=== PATIENT | male | born 1950 | race Caucasian/White ===

== ENCOUNTER 2019-06-14 08:34 | Emergency (ER) | payer MEDICARE, BC ==
[2019-06-14 08:49] VITALS: BP 159/76
--- NOTE | 2019-06-14 09:00 | UC ---
Skin Complaint HPI - HPI Summary HPI Summary: 68 yo lub[place], aware of irritation on his right lateral mid back x 1 week. Yesterday his realized that he has an embedded tick. No hx of Lyme disease, no fever, chills or arthralgias. - History of Current Complaint Chief Complaint: [facility]kin Time Seen by Provider: 06/14/19 08:40 Stated Complaint: SKIN CONCERN ON BACK Hx Obtained From: Patient Onset/Duration: Gradual Onset, Lasting Days Skin Exposure Onset/Duration: Days Ago - ?possibly Timing: Constant Onset Severity: Mild Current Severity: Mild Pain Intensity: 0 Location: Discrete Aggravating Factor(s): Nothing Alleviating Factor(s): Nothing Associated Signs & Symptoms: Positive: Negative - Allergy/Home Medications Allergies/Adverse Reactions: Allergies Allergy/AdvReac Type Severity Reaction Status Date / Time No Known Allergies Allergy Verified 06/14/19 08:45 Home Medications: Home Medications Amlodipine Besylate [Amlodipine Besylate-] 5 mg PO DAILY 07/13/14 [History Confirmed 06/14/19] Acetaminophen [Tylenol Extra Strength] 1,000 mg PO ONCE 06/14/19 [History Confirmed 06/14/19] Atorvastatin* [Lipitor*] 10 mg PO DAILY 06/14/19 [History Confirmed 06/14/19] DOXYcycline CAP(*) [DOXYcycline 100MG CAP(*)] 100 mg PO BID #14 cap 06/14/19 [Rx ] PMH/Surg Hx/FS Hx/Imm Hx Previously Healthy: Yes Endocrine History: Dyslipidemia Cardiovascular History: Hypertension - Surgical History Surgical History: Yes Surgery Procedure, Year, and Place: back surgery- 01/2014. R shoulder - Family History Known Family History: Positive: Cardiac Disease - mother of [place], Hypertension - Social History Occupation: Employed Full-time Alcohol Use: Occasionally Substance Use Type: None Smoking Status (MU): Former Smoker Type: Cigarettes When Did the Patient Quit Smoking/Using Tobacco: 40 years ago - Immunization History Most Recent Tetanus Shot: PT DOES NOT KNOW Review of Systems All Other Systems Reviewed And Are Negative: Yes Constitutional: Positive: Negative Skin: Positive: Rash Eyes: Positive: Negative ENT: Positive: Negative Respiratory: Positive: Negative Cardiovascular: Positive: Other - checks BP at home and control is generally better there. States today's reading is typical for him at an MD visit. Gastrointestinal: Positive: Negative Genitourinary: Positive: Negative Motor: Positive: Negative Neurovascular: Positive: Negative Musculoskeletal: Positive: Negative Neurological/Mental Status: Positive: Negative Psychological: Positive: Negative Is Patient Immunocompromised?: No Physical Exam Triage Information Reviewed: Yes Appearance: Well-Appearing, No Pain Distress Vital Signs: Initial Vital Signs Temp 97.7 F 06/14/19 08:44 Pulse 80 06/14/19 08:44 Resp 16 06/14/19 08:44 BP 159/76 06/14/19 08:44 Pulse Ox 99 06/14/19 08:44 ENT: Positive: Normal ENT inspection Respiratory: Positive: Lungs clear, No respiratory distress Cardiovascular: Positive: RRR, No Murmur Musculoskeletal Exam: Normal Neurological Exam: Normal Psychological Exam: Normal Skin Exam: Other - right lateral back with engorged tick with approx 3 cm of associated erythema. Live tick removed in its entirety with a tick twister. Course/Dx - Course Course Of Treatment: doxy for treatment. Given that he has more that the typical amount of erythema will tx with doxy. - Differential Diagnoses - Skin Complaint Differential Diagnoses: Tick Born Illness - Diagnoses Provider Diagnosis: Tick bite of back Discharge ED - Sign-Out/Discharge Documenting (check all that apply): Patient Departure All imaging exams completed and their final reports reviewed: No Studies - Discharge Plan Condition: Good Disposition: HOME Prescriptions: DOXYcycline CAP(*) [DOXYcycline 100MG CAP(*)] 100 mg PO BID #14 cap Patient Education Materials: Tick Bite (ED) Referrals: Non Staff,Doctor [Medical Doctor] - Additional Instructions: Because you have a reddened area around the tick bite which is larger than typical, you will be treated with doxycycline for one week to treat as possible early Lyme disease. This can cause some gi upset: nausea and diarrhea. Follow up if you develop fever or joint pains. - Billing Disposition and Condition Condition: GOOD Disposition: Home
== END 2019-06-14 09:16 | disposition home or self-care (01) ==
LOC: UCCORT 08:34
DX: S30.860A Insect bite (nonvenomous) of lower back and pelvis, initial encounter (principal); W57.XXXA Bitten or stung by nonvenomous insect and other nonvenomous arthropods, initial encounter; Y92.79 Other farm location as the place of occurrence of the external cause; E78.5 Hyperlipidemia, unspecified; I10 Essential (primary) hypertension; Z79.899 Other long term (current) drug therapy; Z87.891 Personal history of nicotine dependence
CPT/HCPCS: 99202; G0463